=== PATIENT | female | born 1965 | race African-American/Black ===

== ENCOUNTER 2017-05-13 12:11 | Emergency (ER) | payer OTHER ==
--- NOTE | 2017-05-13 12:23 | ER Document Report ---
ED Medical Screen (RME) - General Chief Complaint: Swelling of Lower Extremity Stated Complaint: SWELLING, PAIN IN FEET Time Seen by Provider: 05/13/17 12:21 Mode of Arrival: Ambulatory Information source: Patient TRAVEL OUTSIDE OF THE [place] IN LAST 30 DAYS: No - HPI Patient complains to provider of: Lower extremity swelling and pain Onset: Other - 3 days Notes: 05/13/17 12:22 Patient is a 51-year-old female with a history of lupus, fibromyalgia and edema , who presents to the emergency room complaining of bilateral feet swelling this been going on and worsening over the past 3 days, reporting pain in the left foot and calf as well, she does report being on her feet an increased amount lately, but denies any chest pain or shortness of breath, no injury, no fever, she denies a history of DVT or PE in the past - Related Data Allergies/Adverse Reactions: amoxicillin [Amoxicillin] Allergy (Mild, Verified 05/13/17 12:17) Sulfa (Sulfonamide Antibiotics) Allergy (Mild, Verified 05/13/17 12:17) Past Medical History - Past Medical History Cardiac Medical History: Reports: Hx Hypertension Pulmonary Medical History: Reports: Hx Asthma Denies: Hx Tuberculosis Renal/ Medical History: Denies: Hx Peritoneal Dialysis GI Medical History: Reports: Hx Gastroesophageal Reflux Disease Musculoskeltal Medical History: Reports Hx Arthritis, Reports Hx Fibromyalgia Psychiatric Medical History: Reports: Hx Depression Past Surgical History: Reports: Hx Hysterectomy, Hx Tonsillectomy, Hx Vascular Surgery - for lymphedema. Denies: Hx Pacemaker - Immunizations Hx Diphtheria, Pertussis, Tetanus Vaccination: Yes Physical Exam - Vital signs Vitals: Temp Pulse Resp BP Pulse Ox 98.5 F 69 16 134/81 H 92 05/13/17 12:13 05/13/17 12:13 05/13/17 12:13 05/13/17 12:13 05/13/17 12:13 Course - Vital Signs Vital signs: Temp Pulse Resp BP Pulse Ox 98.5 F 69 16 134/81 H 92 05/13/17 12:13 05/13/17 12:13 05/13/17 12:13 05/13/17 12:13 05/13/17 12:13
[2017-05-13 12:46] LABS: ABSOLUTE BASOPHILS # (AUTO) 0.1 10^3/uL (0.0-0.2); ABSOLUTE EOSINOPHILS # (AUTO) 0.3 10^3/uL (0.0-0.6); ABSOLUTE MONOCYTES (AUTO) 0.9 10^3/uL (0.1-1.4); ABSOLUTE NEUT (AUTO) 5.4 10^3/uL (1.7-8.2); BASOPHILS % (AUTO) 1.1 % (0-2); EOSINOPHILS % (AUTO) 3.6 % (0-6); HEMATOCRIT 40.1 % (36.0-47.0); HEMOGLOBIN 12.9 g/dL (12.0-15.5); HGB HCT DIFFERENCE -1.4; LYMPHOCYTES % (AUTO) 30.7 % (13-45); MEAN CORPUSCULAR HEMOGLOBIN 27.2 pg (27.0-33.4); MEAN CORPUSCULAR HGB CONC 32.3 g/dL (32.0-36.0); MEAN CORPUSCULAR VOLUME 84 fl (80-97); RED BLOOD COUNT 4.76 10^6/uL (3.72-5.28); RED CELL DISTRIBUTION WIDTH 15.3 % (11.5-14.0); SEGMENTED NEUTROPHILS % (AUTO) 55.6 % (42-78); WHITE BLOOD COUNT 9.7 10^3/uL (4.0-10.5)
[2017-05-13 12:51] LABS: APPEARANCE,URINE CLEAR; BILIRUBIN,URINE NEGATIVE (NEGATIVE); GLUCOSE, URINE NEGATIVE (NEGATIVE); KETONES,URINE NEGATIVE (NEGATIVE); LEUKOCYTE ESTERASE,URINE NEGATIVE (NEGATIVE); NITRITE,URINE NEGATIVE (NEGATIVE); PROTEIN,URINE NEGATIVE (NEGATIVE); URINE SPECIFIC GRAVITY 1.015; UROBILINOGEN,URINE NEGATIVE mg/dL (<2.0)
[2017-05-13 12:57] LABS: PARTIAL THROMBOPLASTIN TIME 30.1 SEC (23.5-35.8); PROTHROMBIN TIME 12.5 SEC (11.4-15.4)
[2017-05-13 13:02] LABS: ALANINE AMINOTRANSFERASE 33 U/L (9-52); ALBUMIN 3.7 g/dL (3.5-5.0); ALKALINE PHOSPHATASE 139 U/L (38-126); ANION GAP 6 (5-19); ASPARTATE AMINO TRANSFERASE 24 U/L (14-36); BILIRUBIN,DIRECT 0.3 mg/dL (0.0-0.4); BILIRUBIN,TOTAL 0.5 mg/dL (0.2-1.3); BLOOD UREA NITROGEN 15 mg/dL (7-20); CARBON DIOXIDE 33 mmol/L (22-30); CHLORIDE 103 mmol/L (98-107); CREATININE RESULT 0.75 mg/dL (0.52-1.25); GLUCOSE 85 mg/dL (75-110); POTASSIUM 4.2 mmol/L (3.6-5.0); SODIUM 141.9 mmol/L (137-145); TOTAL PROTEIN 6.7 g/dL (6.3-8.2)
--- NOTE | 2017-05-13 13:05 | ER Document Report ---
ED General - General Chief Complaint: Swelling of Lower Extremity Stated Complaint: SWELLING, PAIN IN FEET Time Seen by Provider: 05/13/17 12:21 Mode of Arrival: Ambulatory Information source: Patient Notes: 51-year-old female history of swelling in bilateral lower extremities for the past few years presents with complaints of further swelling. Patient notes she is on 20 mg of furosemide daily notes over the past few days the left leg has become more swollen. Patient denies any DVT or PE risk factors Patient denies any shortness of breath chest pain TRAVEL OUTSIDE OF THE [place] IN LAST 30 DAYS: No - HPI Onset: Last week Onset/Duration: Persistent Quality of pain: Achy Severity: Mild Pain Level: 1 Associated symptoms: Leg swelling Exacerbated by: Standing Relieved by: Supine Similar symptoms previously: Yes Recently seen / treated by doctor: Yes - Related Data Allergies/Adverse Reactions: amoxicillin [Amoxicillin] Allergy (Mild, Verified 05/13/17 12:17) Sulfa (Sulfonamide Antibiotics) Allergy (Mild, Verified 05/13/17 12:17) Past Medical History - General Information source: Patient - Social History Smoking Status: Never Smoker Cigarette use (# per day): No Chew tobacco use (# tins/day): No Smoking Education Provided: No Frequency of alcohol use: None Drug Abuse: [place] Family History: Reviewed & Not Pertinent Patient has suicidal ideation: No Patient has homicidal ideation: No - Past Medical History Cardiac Medical History: Reports: Hx Hypertension Pulmonary Medical History: Reports: Hx Asthma Denies: Hx Tuberculosis Renal/ Medical History: Denies: Hx Peritoneal Dialysis GI Medical History: Reports: Hx Gastroesophageal Reflux Disease Musculoskeltal Medical History: Reports Hx Arthritis, Reports Hx Fibromyalgia Psychiatric Medical History: Reports: Hx Depression Past Surgical History: Reports: Hx Hysterectomy, Hx Tonsillectomy, Hx Vascular Surgery - for lymphedema. Denies: Hx Pacemaker - Immunizations Hx Diphtheria, Pertussis, Tetanus Vaccination: Yes Review of Systems - Review of Systems Notes: REVIEW OF SYSTEMS: CONSTITUTIONAL : Denies fever, chills, or sweats. Denies recent illness. EENT: Denies eye, ear, throat, or mouth pain or symptoms. Denies nasal or sinus congestion or discharge. Denies throat, tongue, or mouth swelling or difficulty swallowing. CARDIOVASCULAR: Denies chest pain. Denies palpitations or racing or irregular heart beat. Denies ankle edema. RESPIRATORY: Denies cough, cold, or chest congestion. Denies shortness of breath, difficulty breathing, or wheezing. GASTROINTESTINAL: Denies abdominal pain or distention. Denies nausea, vomiting , or diarrhea. Denies blood in vomitus, stools, or per rectum. Denies black, tarry stools. Denies constipation. GENITOURINARY: Denies difficulty urinating, painful urination, burning, frequency, blood in urine, or discharge. FEMALE GENITOURINARY: Denies vaginal bleeding, heavy or abnormal periods, irregular periods. Denies vaginal discharge or odor. MUSCULOSKELETAL: Admits to bilateral lower extremity edema left worse than right SKIN: Denies rash, lesions or sores. HEMATOLOGIC : Denies easy bruising or bleeding. LYMPHATIC: Denies swollen, enlarged glands. NEUROLOGICAL: Denies confusion or altered mental status. Denies passing out or loss of consciousness. Denies dizziness or lightheadedness. Denies headache. Denies weakness or paralysis or loss of use of either side. Denies problems with gait or speech. Denies sensory loss, numbness, or tingling. Denies seizures. PSYCHIATRIC: Denies anxiety or stress. Denies depression, suicidal ideation, or homicidal ideation. ALL OTHER SYSTEMS REVIEWED AND NEGATIVE. PHYSICAL EXAMINATION: GENERAL: Well-appearing, well-nourished and in no acute distress. HEAD: Atraumatic, normocephalic. EYES: Pupils equal round and reactive to light, extraocular movements intact, conjunctiva are normal. ENT: Nares patent, oropharynx clear without exudates. Moist mucous membranes. NECK: Normal range of motion, supple without lymphadenopathy LUNGS: Breath sounds clear to auscultation bilaterally and equal. No wheezes rales or rhonchi. HEART: Regular rate and rhythm without murmurs ABDOMEN: Soft, nontender, nondistended abdomen. No guarding, no rebound. No masses appreciated. Female : deferred Musculoskeletal: +1 nonpitting edema bilateral lower extremities NEUROLOGICAL: Cranial nerves grossly intact. Normal speech, normal gait. Normal sensory, motor exams PSYCH: Normal mood, normal affect. SKIN: Warm, Dry, normal turgor, no rashes or lesions noted. Dictation was performed using [employer] voice recognition software Physical Exam - Vital signs Vitals: Temp Pulse Resp BP Pulse Ox 98.5 F 69 16 134/81 H 92 05/13/17 12:13 05/13/17 12:13 05/13/17 12:13 05/13/17 12:13 05/13/17 12:13 Course - Re-evaluation Re-evalutation: 05/13/17 13:14 I believe the patient's symptoms are chronic and appropriate treatment will be the use of increased diuretic otherwise patient looks well. Lab work is pending to rule out any life-threatening issue 05/13/17 14:11 51-year-old female with lower extremity edema, patient's lab work imaging note no significant abnormality I believe she does have some venous stasis with mild fluid overload is not causing any respiratory concerns. BNP is not elevated Doppler was negative Patient has been instructed to increase frusemide from 20-40 daily for the next 3 days and given very strict return precautions After performing a Medical Screening Examination, I estimate there is LOW risk for RUPTURED ESOPHAGUS, PNEUMOTHORAX, PULMONARY EMBOLISM, ACUTE CORONARY SYNDROME, OR THORACIC AORTIC DISSECTION, thus I consider the discharge disposition reasonable. I have reevaluated this patient multiple times and no significant life threatening changes are noted. The patient and I have discussed the diagnosis and risks, and we agree with discharging home with close follow-up. We also discussed returning to the Emergency Department immediately if new or worsening symptoms occur. We have discussed the symptoms which are most concerning (e.g., bloody sputum, worsening pain or shortness of breath) that necessitate immediate return. - Vital Signs Vital signs: Temp Pulse Resp BP Pulse Ox 98.5 F 69 16 134/81 H 92 05/13/17 12:13 05/13/17 12:13 05/13/17 12:13 05/13/17 12:13 05/13/17 12:13 - Laboratory Result Diagrams: 05/13/17 12:25 05/13/17 12:25 Laboratory results interpreted by me: 05/13/17 05/13/17 12:25 12:25 RDW 15.3 H Carbon Dioxide 33 H Alkaline Phosphatase 139 H - Diagnostic Test Radiology reviewed: Image reviewed, Reports reviewed Discharge - Discharge Clinical Impression: Bilateral lower extremity edema Extremity pain Qualifiers: Extremity pain location: lower extremity Laterality: left Qualified Code(s): M79.605 - Pain in left leg Condition: Stable Disposition: HOME, SELF-CARE Instructions: Edema, Peripheral ([facility]) Referrals: JULIUS JOYCE MD [Primary Care Provider] - Follow up tomorrow
--- NOTE | 2017-05-13 13:33 | RADIOLOGY REPORT (SQ) ---
EXAM DESCRIPTION: CHEST PA/LAT COMPLETED DATE/TIME: 05/13/2017 1:25 pm REASON FOR STUDY: edema COMPARISON: 01/26/2016 EXAM PARAMETERS: NUMBER OF VIEWS: two views TECHNIQUE: Digital Frontal and Lateral radiographic views of the chest acquired. RADIATION DOSE: NA LIMITATIONS: none FINDINGS: LUNGS AND PLEURA: No opacities, masses or pneumothorax. No pleural effusion. MEDIASTINUM AND HILAR STRUCTURES: No masses or contour abnormalities. HEART AND VASCULAR STRUCTURES: Heart normal size. No evidence for failure. BONES: No acute findings. HARDWARE: None in the chest. OTHER: No other significant finding. IMPRESSION: NO SIGNIFICANT RADIOGRAPHIC FINDING IN THE CHEST. TECHNICAL DOCUMENTATION: JOB ID: [id number] [employer]- All Rights Reserved
--- NOTE | 2017-05-13 13:56 | XCELERA REPORT ---
[address] [address] Lower Extremity Venous Evaluation Name: JEANMARIE VARNER Age: 51 yrs Gender: Female : 1965 Patient Status: Emergency Patient Location: ER Study Date: 05/13/2017 01:01 PM Procedure: Color flow and duplex imaging of the veins of the left lower extremity as well as the right Common Femoral vein. Reason For Study: LLE pain Ordering Physician: ALIS IRAHETA Performed By: Lina Owen Right Sided Venous Evaluation The right common femoral vein is fully compressible. Spontaneous and phasic flow is present in the right common femoral vein. Left Sided Venous Evaluation Normal vessel filling wall to wall, compression and augmentation as well as Colour flow down to the infrageniculate veins. Critical Findings Called in to Dr Gerard at about 1400. Interpretation Summary No duplex evidence of DVT or obstruction in the left lower extremity nor in the right Common Femoral vein. : ALIS IRAHETA > Héctor Pineda
[2017-05-13 14:33] VITALS: BP 127/79
== END 2017-05-13 14:33 | disposition home or self-care (01) ==
LOC: ER 12:11
DX: I87.8 Other specified disorders of veins (principal); R60.0 Localized edema; M79.605 Pain in left leg; I10 Essential (primary) hypertension; J45.909 Unspecified asthma, uncomplicated; Z79.899 Other long term (current) drug therapy; Z88.0 Allergy status to penicillin; Z88.2 Allergy status to sulfonamides
CPT/HCPCS: 36415; 71020; 80053; 81001; 83880; 85025; 85610; 85730; 93971; 99284

== ENCOUNTER 2017-06-07 03:14 | Emergency (ER) | payer OTHER ==
[2017-06-07 03:26] VITALS: BP 133/83
--- NOTE | 2017-06-07 04:16 | ER Document Report ---
ED Extremity Problem, Lower - General Mode of Arrival: Ambulatory Information source: Patient TRAVEL OUTSIDE OF THE [place] IN LAST 30 DAYS: No - HPI Location: Knee - right Occurred: Just prior to arrival - General Chief Complaint: Knee Injury Stated Complaint: RIGHT KNEE PAIN CORKY INJURY Time Seen by Provider: 06/07/17 03:42 Notes: Patient is a 51 year old female who presents to the ED with complaints of right knee pain and swelling x 2 weeks. Patient states she has been having a work up done by her PCP, she had an x ray and DVT ultrasound done yesterday but has not been contacted with results. Patient denies any injury to the knee. Patient states today she was getting out of her car and heard a pop in her knee. Patient denies chest pain or sob. No other concerns or complaints at this time. (STEVENSON GAONA) - Related Data Allergies/Adverse Reactions: amoxicillin [Amoxicillin] Allergy (Mild, Verified 06/07/17 04:03) Sulfa (Sulfonamide Antibiotics) Allergy (Mild, Verified 06/07/17 04:03) Past Medical History - General Information source: Patient - Social History Smoking Status: Never Smoker Chew tobacco use (# tins/day): No Frequency of alcohol use: None Drug Abuse: None Family History: Reviewed & Not Pertinent Patient has suicidal ideation: No Patient has homicidal ideation: No - Past Medical History Cardiac Medical History: Reports: Hx Hypertension Pulmonary Medical History: Reports: Hx Asthma Denies: Hx Tuberculosis Renal/ Medical History: Denies: Hx Peritoneal Dialysis GI Medical History: Reports: Hx Gastroesophageal Reflux Disease Musculoskeltal Medical History: Reports Hx Arthritis, Reports Hx Fibromyalgia Psychiatric Medical History: Reports: Hx Depression Past Surgical History: Reports: Hx Hysterectomy, Hx Tonsillectomy, Hx Vascular Surgery - for lymphedema. Denies: Hx Pacemaker - Immunizations Hx Diphtheria, Pertussis, Tetanus Vaccination: Yes Review of Systems - Review of Systems Constitutional: No symptoms reported EENT: No symptoms reported Cardiovascular: See HPI. denies: Chest pain Respiratory: See HPI. denies: Short of breath Gastrointestinal: No symptoms reported Genitourinary: No symptoms reported Female Genitourinary: No symptoms reported Musculoskeletal: See HPI, Joint pain - right knee, Joint swelling - right knee Skin: No symptoms reported Hematologic/Lymphatic: No symptoms reported Neurological/Psychological: No symptoms reported Physical Exam - General General appearance: Appears well, Alert In distress: None - HEENT Head: Normocephalic, Atraumatic Eyes: Normal Extraocular movements intact: Yes Pupils: PERRL - Respiratory Respiratory status: No respiratory distress Breath sounds: Normal - Cardiovascular Rhythm: Regular Heart sounds: Normal auscultation Murmur: No - Abdominal Inspection: Normal Distension: No distension Tenderness: Nontender - Back Back: Normal, Nontender - Extremities General upper extremity: Normal inspection, Normal ROM General lower extremity: Normal inspection, Normal ROM - Neurological Neuro grossly intact: Yes Cognition: Normal Orientation: AAOx4 [place] Coma Scale Eye Opening: Spontaneous [place] Coma Scale Verbal: Oriented [place] Coma Scale Motor: Obeys Commands [place] Coma Scale Total: 15 Speech: Normal Sensory: Normal - Psychological Associated symptoms: Normal affect, Normal mood - Skin Skin Temperature: Warm Skin Moisture: Dry Skin Color: Normal Course - Re-evaluation Re-evalutation: 06/07/17 04:37 Patient presents emergency room chiefly right knee pain and swelling. Patient states that the past 3 or 4 weeks she has had right leg pain. Patient with a car today twisted and felt a pop in her knee. She is complaining of pain only in her right knee today denies any previous injury to the area no history of recent travel surgery immobilization DVT or pulmonary emboli no chest pain or shortness of breath numbness tingling weakness on examination the knee is not red hot or swollen there is no ligamentous instability no Tenderness swelling good pulses and perfusion. Says she saw her primary care physician yesterday who did an x-ray she can get the results of it and did an ultrasound she also been get the results of it. On my examination x-ray is negative no intra- articular swelling. No clinical concerns for recurrent DVT cellulitis. Go ahead and give her an Keron wrap crutches to go pack primary care physician in 2- 3 days and discussed reasons for ED return to ([facility]) - Vital Signs Vital signs: Temp Pulse Resp BP Pulse Ox 98.1 F 83 16 133/83 H 98 06/07/17 03:24 06/07/17 03:24 06/07/17 03:24 06/07/17 03:24 06/07/17 03:24 Discharge - Discharge Clinical Impression: right knee pain Condition: Stable Disposition: HOME, SELF-CARE Instructions: Use of Crutches ([facility]) Additional Instructions: Leg Pain, Nonspecific We did not find an obvious cause for your leg pain. There's no sign of blood clot, infection, or other serious disease. Possible causes of vague leg pain include muscle or joint inflammation, disc disease in the lower back, pressure on the nerves in the back, or reduced blood flow through the arteries of the leg. Rest the leg. Pain can be eased with an antiinflammatory pain medicine such as ibuprofen. If the pain involves a small area, a heating pad might help. Call the doctor or return if the leg becomes swollen, weak, discolored, or increasingly painful, or if you develop any other significant change in your health. follow up with your primary care physician in 2-3 days return for increasing worsening or new symptoms Scribe Attestation: 06/07/17 04:37 I personally performed the services described in the documentation reviewed the documentation recorded by my scribe in my presence and it accurately and completely records my words and actions (HARRY PARKINSON) Scribe Documentation - Scribe Written by Evelin:: evelin Cabral, 06/07/2017, [id number] acting as scribe for :: [place]
--- NOTE | 2017-06-07 04:17 | RADIOLOGY REPORT (SQ) ---
EXAM DESCRIPTION: KNEE RIGHT 4 VIEWS COMPLETED DATE/TIME: 06/07/2017 4:04 am REASON FOR STUDY: swelling . Pain on the lateral aspect adjacent to the patella. Binger a pop when g etting into the car. COMPARISON: Right tibia/ fibula x-ray 10/07/2015, 08/08/2007. NUMBER OF VIEWS: Four views. TECHNIQUE: AP, lateral, and both oblique radiographic images acquired of the right knee. LIMITATIONS: None. FINDINGS: MINERALIZATION: Normal. BONES: No acute fracture or dislocation. JOINT: No effusion. SOFT TISSUES: No soft tissue swelling. No radio-opaque foreign body. IMPRESSION: No radiographic evidence of acute fracture. TECHNICAL DOCUMENTATION: JOB ID: [id number] [employer]- All Rights Reserved
[2017-06-07] MEDS ORDERED: HYDROCODONE/ACETAMINOPHEN 5-325 MG 6 TAB/DSPK PO PRN (04:35)
== END 2017-06-07 04:50 | disposition home or self-care (01) ==
LOC: ER 03:14
DX: M25.561 Pain in right knee (principal); M79.89 Other specified soft tissue disorders
CPT/HCPCS: 99283

== ENCOUNTER → 2018-01-21 | Outpatient (CLI) | payer OTHER ==
--- NOTE | 2018-01-21 08:25 | RADIOLOGY REPORT (SQ) ---
EXAM DESCRIPTION: KUB COMPLETED DATE/TIME: 01/21/2018 7:53 am REASON FOR STUDY: CALCULUS OF KIDNEY N20.0 CALCULUS OF KIDNEY COMPARISON: 10/16/2016, 05/19/2014 NUMBER OF VIEWS: One view. TECHNIQUE: Supine radiographic image of the abdomen acquired. LIMITATIONS: None. FINDINGS: BOWEL GAS PATTERN: Normal bowel gas pattern. No dilated loops. CALCIFICATIONS: 5 mm calcific density projected over the right sacrum unchanged in position since however was not on the previous KUB of 05/19/2014. Ureteral calculus is a consideration. No renal calculi however calcific densities right kidney could be obscured by large quantity fecal mater ial. SOFT TISSUES: No gross mass or suggestion of organomegaly. HARDWARE: None in the abdomen. BONES: Degenerative changes lower lumbar spine. Right sacroiliitis. OTHER: No other significant finding. IMPRESSION: Persistent 5 mm calcific density projected over the right sacrum. See above discussion. TECHNICAL DOCUMENTATION: JOB ID: [id number] [employer]- All Rights Reserved Reading location - IP/workstation name: [email or web address]
== END ==
LOC: OD 07:42
PROVIDERS: ATTEND Urology
DX: N20.0 Calculus of kidney (principal)
CPT/HCPCS: 74018

== ENCOUNTER 2018-12-30 12:10 | Emergency (ER) | payer OTHER ==
--- NOTE | 2018-12-30 13:17 | ER Document Report ---
ED Medical Screen (RME) - General Chief Complaint: Breathing Difficulty Stated Complaint: SHORT OF BREATH, BACK PAIN Time Seen by Provider: 12/30/18 13:15 Mode of Arrival: Ambulatory Notes: Patient presents complaining of upper back pain with shortness of breath for the past 2-3 days. Patient denies any chest pain. Patient also reports that a door hit her in the anterior aspect of bilateral lower extremities and she has bruising and swelling to this area. History Lupus, fibromyalgia, hypertension, diabetes I have greeted and performed a rapid initial assessment of this patient. A comprehensive ED assessment and evaluation of the patient, analysis of test results and completion of the medical decision making process will be conducted by additional ED providers. TRAVEL OUTSIDE OF THE [place] IN LAST 30 DAYS: No - Related Data Allergies/Adverse Reactions: amoxicillin [Amoxicillin] Allergy (Mild, Verified 12/30/18 12:11) Sulfa (Sulfonamide Antibiotics) Allergy (Mild, Verified 12/30/18 12:11) Past Medical History - Past Medical History Cardiac Medical History: Reports: Hx Hypertension Pulmonary Medical History: Reports: Hx Asthma Denies: Hx Tuberculosis Renal/ Medical History: Denies: Hx Peritoneal Dialysis GI Medical History: Reports: Hx Gastroesophageal Reflux Disease Musculoskeltal Medical History: Reports Hx Arthritis, Reports Hx Fibromyalgia Psychiatric Medical History: Reports: Hx Depression Past Surgical History: Reports: Hx Hysterectomy, Hx Tonsillectomy, Hx Vascular Surgery - for lymphedema. Denies: Hx Pacemaker - Immunizations Hx Diphtheria, Pertussis, Tetanus Vaccination: Yes Physical Exam - Vital signs Vitals: Temp Pulse Resp BP Pulse Ox 98.8 F 58 L 20 129/79 H 99 12/30/18 12:36 12/30/18 12:36 12/30/18 12:36 12/30/18 12:36 12/30/18 12:36 - Respiratory Respiratory status: No respiratory distress Chest status: Nontender Breath sounds: Normal. No: Nonproductive cough Course - Vital Signs Vital signs: Temp Pulse Resp BP Pulse Ox 98.8 F 58 L 20 129/79 H 99 12/30/18 12:36 12/30/18 12:36 12/30/18 12:36 12/30/18 12:36 12/30/18 12:36
--- NOTE | 2018-12-30 14:22 | RADIOLOGY REPORT (SQ) ---
EXAM DESCRIPTION: TIB FIB BILAT 2 VIEWS COMPLETED DATE/TIME: 12/30/2018 2:09 pm REASON FOR STUDY: door struck legs COMPARISON: None. NUMBER OF VIEWS: Two views. TECHNIQUE: Two radiographic images acquired of the right and left tibia and fibula to include the kn ee and ankle in at least one projection. LIMITATIONS: None. FINDINGS: MINERALIZATION: Normal. BONES: No acute fracture or dislocation. No worrisome bone lesions. SOFT TISSUES: Mild bilateral pretibial soft tissue swelling. No underlying fracture. No retained ra diopaque foreign body or soft tissue gas. OTHER: Mild bilateral medial compartment knee joint space narrowing IMPRESSION: No acute fracture TECHNICAL DOCUMENTATION: JOB ID: [id number] [employer]- All Rights Reserved Reading location - IP/workstation name: [email or web address]
--- NOTE | 2018-12-30 14:23 | RADIOLOGY REPORT (SQ) ---
EXAM DESCRIPTION: CHEST 2 VIEWS COMPLETED DATE/TIME: 12/30/2018 2:09 pm REASON FOR STUDY: sob COMPARISON: Two-view chest 05/13/2017 EXAM PARAMETERS: NUMBER OF VIEWS: two views TECHNIQUE: Digital Frontal and Lateral radiographic views of the chest acquired. RADIATION DOSE: NA LIMITATIONS: none FINDINGS: LUNGS AND PLEURA: No opacities, masses or pneumothorax. No pleural effusion. MEDIASTINUM AND HILAR STRUCTURES: No masses or contour abnormalities. HEART AND VASCULAR STRUCTURES: Stable borderline cardiomegaly BONES: No acute findings. HARDWARE: None in the chest. OTHER: No other significant finding. IMPRESSION: NO ACUTE RADIOGRAPHIC FINDING IN THE CHEST. TECHNICAL DOCUMENTATION: JOB ID: [id number] [employer]- All Rights Reserved Reading location - IP/workstation name: [email or web address]
[2018-12-30 14:49] LABS: ABSOLUTE BASOPHILS # (AUTO) 0.1 10^3/uL (0.0-0.2); ABSOLUTE EOSINOPHILS # (AUTO) 0.1 10^3/uL (0.0-0.6); ABSOLUTE LYMPHOCYTES (AUTO) 2.7 10^3/uL (0.5-4.7); ABSOLUTE MONOCYTES (AUTO) 0.5 10^3/uL (0.1-1.4); ABSOLUTE NEUT (AUTO) 2.4 10^3/uL (1.7-8.2); BASOPHILS % (AUTO) 1.1 % (0-2); EOSINOPHILS % (AUTO) 2.5 % (0-6); HEMATOCRIT 40.1 % (36.0-47.0); HEMOGLOBIN 13.4 g/dL (12.0-15.5); LYMPHOCYTES % (AUTO) 46.1 % (13-45); MEAN CORPUSCULAR HEMOGLOBIN 28.9 pg (27.0-33.4); MEAN CORPUSCULAR HGB CONC 33.3 g/dL (32.0-36.0); MEAN CORPUSCULAR VOLUME 87 fl (80-97); MONOCYTES % (AUTO) 8.4 % (3-13); PLATELET COUNT 227 10^3/uL (150-450); RED BLOOD COUNT 4.63 10^6/uL (3.72-5.28); RED CELL DISTRIBUTION WIDTH 14.5 % (11.5-14.0); SEGMENTED NEUTROPHILS % (AUTO) 41.9 % (42-78); TOTAL CELLS COUNTED % (AUTO) 100 %; WHITE BLOOD COUNT 5.8 10^3/uL (4.0-10.5)
[2018-12-30 15:04] LABS: ALANINE AMINOTRANSFERASE 24 U/L (9-52); ALBUMIN 4.2 g/dL (3.5-5.0); ALKALINE PHOSPHATASE 86 U/L (38-126); ANION GAP 7 (5-19); ASPARTATE AMINO TRANSFERASE 28 U/L (14-36); BILIRUBIN,DIRECT 0.2 mg/dL (0.0-0.4); BILIRUBIN,TOTAL 0.4 mg/dL (0.2-1.3); BLOOD UREA NITROGEN 11 mg/dL (7-20); CALCIUM 9.1 mg/dL (8.4-10.2); CARBON DIOXIDE 25 mmol/L (22-30); CHLORIDE 109 mmol/L (98-107); CREATINE KINASE 175 U/L (30-135); GLUCOSE 81 mg/dL (75-110); POTASSIUM 4.5 mmol/L (3.6-5.0); SODIUM 140.9 mmol/L (137-145); TOTAL PROTEIN 6.9 g/dL (6.3-8.2)
[2018-12-30 15:17] LABS: CREATINE KINASE MB 0.82 ng/mL (<4.55); NT PRO BNP 149 pg/mL (5-900); TROPONIN I < 0.012 ng/mL
--- NOTE | 2018-12-30 17:44 | ER Document Report ---
ED General - General Chief Complaint: Breathing Difficulty Stated Complaint: SHORT OF BREATH, BACK PAIN Time Seen by Provider: 12/30/18 13:15 Primary Care Provider: ERMA TORRES MD [Primary Care Provider] - Follow up as needed Mode of Arrival: Ambulatory TRAVEL OUTSIDE OF THE [place] IN LAST 30 DAYS: No - HPI Patient complains to provider of: Shortness of breath contusions to the legs Notes: Patient coming in for evaluation for contusion to the legs difficulty breathing. Patient was seen by triage provider's notes provided below Patient presents complaining of upper back pain with shortness of breath for the past 2-3 days. Patient denies any chest pain. Patient also reports that a door hit her in the anterior aspect of bilateral lower extremities and she has bruising and swelling to this area. History Lupus, fibromyalgia, hypertension, diabetes Patient upon my evaluation stating no further shortness of breath no chest pain. Patient resting comfortably. Patient does have some swelling to the anterior right gross. Patient states that this is painful. Patient denies any increased swelling to her legs denies any fevers chills nausea vomiting diarrhea - Related Data Allergies/Adverse Reactions: amoxicillin [Amoxicillin] Allergy (Mild, Verified 12/30/18 12:11) Sulfa (Sulfonamide Antibiotics) Allergy (Mild, Verified 12/30/18 12:11) Past Medical History - Social History Smoking Status: Never Smoker Chew tobacco use (# tins/day): No Frequency of alcohol use: None Drug Abuse: None Family History: Reviewed & Not Pertinent Patient has suicidal ideation: No Patient has homicidal ideation: No - Past Medical History Cardiac Medical History: Reports: Hx Hypertension Pulmonary Medical History: Reports: Hx Asthma Denies: Hx Tuberculosis Renal/ Medical History: Denies: Hx Peritoneal Dialysis GI Medical History: Reports: Hx Gastroesophageal Reflux Disease Musculoskeletal Medical History: Reports Hx Arthritis, Reports Hx Fibromyalgia Psychiatric Medical History: Reports: Hx Depression Past Surgical History: Reports: Hx Hysterectomy, Hx Tonsillectomy, Hx Vascular Surgery - for lymphedema. Denies: Hx Pacemaker - Immunizations Hx Diphtheria, Pertussis, Tetanus Vaccination: Yes Review of Systems - Review of Systems Constitutional: No symptoms reported EENT: No symptoms reported Cardiovascular: No symptoms reported Respiratory: Short of breath Gastrointestinal: No symptoms reported Genitourinary: No symptoms reported Female Genitourinary: No symptoms reported Musculoskeletal: Other - Contusions to the leg Skin: No symptoms reported Hematologic/Lymphatic: No symptoms reported Neurological/Psychological: No symptoms reported -: Yes All other systems reviewed and negative Physical Exam - Vital signs Vitals: Temp Pulse Resp BP Pulse Ox 98.8 F 58 L 20 129/79 H 99 12/30/18 12:36 12/30/18 12:36 12/30/18 12:36 12/30/18 12:36 12/30/18 12:36 Interpretation: Normal - General General appearance: Appears well, Alert - HEENT Head: Normocephalic, Atraumatic Eyes: Normal Pupils: PERRL - Respiratory Respiratory status: No respiratory distress Chest status: Nontender Breath sounds: Normal Chest palpation: Normal - Cardiovascular Rhythm: Regular Heart sounds: Normal auscultation Murmur: No - Abdominal Inspection: Normal Distension: No distension Bowel sounds: Normal Tenderness: Nontender Organomegaly: No organomegaly - Back Back: Normal, Nontender - Extremities General upper extremity: Normal inspection, Nontender, Normal color, Normal ROM, Normal temperature General lower extremity: Nontender, Normal color, Normal ROM, Normal temperature, Normal weight bearing. No: Normal inspection - Patient with a contusion to the gross right lower extremity on the medial and lateral aspect proximal. There are no signs of any posterior calf tenderness no cords no palpable nodules no signs of asymmetry between the right and left calf or leg, Meghan's sign - Neurological Neuro grossly intact: Yes Cognition: Normal Orientation: AAOx4 [place] Coma Scale Eye Opening: Spontaneous [place] Coma Scale Verbal: Oriented [place] Coma Scale Motor: Obeys Commands [place] Coma Scale Total: 15 Speech: Normal Motor strength normal: LUE, RUE, LLE, RLE Sensory: Normal - Psychological Associated symptoms: Normal affect, Normal mood - Skin Skin Temperature: Warm Skin Moisture: Dry Skin Color: Normal Course - Re-evaluation Re-evalutation: 12/30/18 18:43 Workup is negative for any critical pathology. Patient recommended ice and elevation of her contusion. Patient will be discharged home - Vital Signs Vital signs: Temp Pulse Resp BP Pulse Ox 98.6 F 58 L 14 124/89 H 100 12/30/18 17:55 12/30/18 12:36 12/30/18 17:55 12/30/18 17:55 12/30/18 17:55 - Laboratory Result Diagrams: 12/30/18 14:16 12/30/18 14:16 Laboratory results interpreted by me: 12/30/18 12/30/18 14:16 14:16 RDW 14.5 H Seg Neutrophils % 41.9 L Lymphocytes % 46.1 H Chloride 109 H Creatine Kinase 175 H Discharge - Discharge Clinical Impression: Dyspnea Contusion of lower leg Qualifiers: Encounter type: initial encounter Disposition: HOME, SELF-CARE Instructions: Contusion ([facility]), Dyspnea, Nonspecific ([facility]) Additional Instructions: Laboratory studies not show any critical pathology x-rays not show any fracture chest x-rays not showing signs of pneumonia. Examination of the leg does not reveal any signs of a deep vein thrombosis only a contusion to the anterior side we recommend ice and elevation please follow-up with your primary care physician return to ER symptoms worsen. Referrals: ERMA TORRES MD [Primary Care Provider] - Follow up as needed
[2018-12-30 17:58] VITALS: BP 124/89
--- NOTE | 2018-12-30 18:23 | EKG REPORT ---
SEVERITY:- OTHERWISE NORMAL ECG - SINUS BRADYCARDIA : Confirmed by: Carmela Garcia 30-Dec-2018 18:22:57
== END 2018-12-30 17:58 | disposition home or self-care (01) ==
LOC: ER 12:10
DX: S80.10XA Contusion of unspecified lower leg, initial encounter (principal); R06.02 Shortness of breath; R06.00 Dyspnea, unspecified; M54.9 Dorsalgia, unspecified; W22.8XXA Striking against or struck by other objects, initial encounter; I10 Essential (primary) hypertension; E11.9 Type 2 diabetes mellitus without complications; Z88.0 Allergy status to penicillin; Z88.2 Allergy status to sulfonamides; Z90.710 Acquired absence of both cervix and uterus
CPT/HCPCS: 36415; 71046; 80053; 82550; 82553; 83880; 84484; 85025; 93005; 93010; 99285

== ENCOUNTER → 2019-10-14 | Outpatient (CLI) | payer MEDICARE, OTHER ==
--- NOTE | 2019-10-14 16:46 | XCELERA REPORT ---
[address] [address] Lower Extremity Arterial Evaluation Name: JEANMARIE VARNER Age: 53 yrs Gender: Female : 1965 Patient Status: Preadmit Patient Location: [facility] Study Date: 10/14/2019 10:26 AM Procedure: A color flow and duplex scan of the lower extremity arteries was performed bilaterally with velocity and waveform anaylsis. Reason For Study: LLE PAIN Ordering Physician: GLENN ASPP Performed By: Roscoe Wilcox Measurements and Calculations Right Left PHARMACY COORDINATOR PSV 181.7 142.5 cm/sec Prox PFA PSV -108.1 -86.9 cm/sec Prox SFA PSV 113.8 110.3 cm/sec Mid SFA PSV -95.3 -89.9 cm/sec Dist SFA PSV -88.9 -86.0 cm/sec Prox Pop A PSV 82.0 83.0 cm/sec Dist KOBE PSV 60.5 59.0 cm/sec Dist LAYER OFF PSV 65.2 55.5 cm/sec Duncan Pedis PSV 58.0 56.6 cm/sec Right Side Arterial Evaluation Normal velocity and triphasic waveforms noted from the Common Femoral artery to the infrageniculate vessels . Ankle Brachial index not ordered. Left Side Arterial Evaluation Normal velocity and triphasic waveforms noted from the Common Femoral artery to the infrageniculate vessels . Ankle Brachial index not ordered. Interpretation Summary No hemodynamically significant lesions in the bilateral lower extremities, on duplex imaging, at rest. : GLENN SAPP > Héctor Pineda
== END ==
LOC: SP 10:02
PROVIDERS: ATTEND Pain Medicine Interventional Pain Medicine
DX: M79.662 Pain in left lower leg (principal)
CPT/HCPCS: 93925

== ENCOUNTER 2020-10-01 10:43 | Emergency (ER) | payer MEDICARE, OTHER ==
[2020-10-01] MEDS ORDERED: DEXAMETHASONE SOD PHOS INJ 10 MG/1 ML VIAL IV ONE (11:13)
[2020-10-01] MEDS ORDERED: NORMAL SALINE 1000 ML 1,000 ML IV ONE (11:14)
--- NOTE | 2020-10-01 11:16 | ER Document Report ---
ED Medical Screen (RME) - General Chief Complaint: Shortness Of Breath Stated Complaint: SHORT OF BREATH,CONGESTION Time Seen by Provider: 10/01/20 11:07 Primary Care Provider: GLENN SAPP MD [Primary Care Provider] - Follow up as needed Mode of Arrival: Ambulatory Information source: Patient Notes: 54-year-old female presented to ED for complaint of cough short of breath chest discomfort from the cough since the 15 September she states she did get a virtual visit with her primary care doctor and they write a prescription for some cough medicine. She did have a Covid test on the which was negative but her symptoms continued to get worse. Will order repeat Covid, influenza, chest, lab work, and 10 mg of Decadron IV for her symptoms. She does have a history of lupus. Her lungs are congested and mildly diminished. I have greeted and performed a rapid initial assessment of this patient. A comprehensive ED assessment and evaluation of the patient, analysis of test results and completion of medical decision making process will be conducted by an additional ED providers. TRAVEL OUTSIDE OF THE [place] IN LAST 30 DAYS: No - Related Data Allergies/Adverse Reactions: amoxicillin [Amoxicillin] Allergy (Mild, Verified 12/30/18 12:11) Sulfa (Sulfonamide Antibiotics) Allergy (Mild, Verified 12/30/18 12:11) Past Medical History - Past Medical History Cardiac Medical History: Reports: Hx Hypertension Pulmonary Medical History: Reports: Hx Asthma Denies: Hx Tuberculosis Renal/ Medical History: Denies: Hx Peritoneal Dialysis GI Medical History: Reports: Hx Gastroesophageal Reflux Disease Musculoskeltal Medical History: Reports Hx Arthritis, Reports Hx Fibromyalgia Psychiatric Medical History: Reports: Hx Depression Past Surgical History: Reports: Hx Hysterectomy, Hx Tonsillectomy, Hx Vascular Surgery - for lymphedema. Denies: Hx Pacemaker - Immunizations Hx Diphtheria, Pertussis, Tetanus Vaccination: Yes Physical Exam - Vital signs Vitals: Temp Pulse Resp BP Pulse Ox 99.2 F 86 16 142/60 H 97 10/01/20 10:48 10/01/20 10:48 10/01/20 10:48 10/01/20 10:48 10/01/20 10:48 Course - Vital Signs Vital signs: Temp Pulse Resp BP Pulse Ox 99.2 F 86 16 142/60 H 97 10/01/20 10:48 10/01/20 10:48 10/01/20 10:48 10/01/20 10:48 10/01/20 10:48 Doctor's Discharge - Discharge Referrals: GLENN SAPP MD [Primary Care Provider] - Follow up as needed
--- NOTE | 2020-10-01 13:01 | RADIOLOGY REPORT (SQ) ---
EXAM DESCRIPTION: CHEST SINGLE VIEW IMAGES COMPLETED DATE/TIME: 10/01/2020 12:53 pm REASON FOR STUDY: Cough short of breath congestion since 15 September COMPARISON: 12/30/2018 EXAM PARAMETERS: NUMBER OF VIEWS: One view. TECHNIQUE: Single frontal radiographic view of the chest acquired. RADIATION DOSE: NA LIMITATIONS: None. FINDINGS: LUNGS AND PLEURA: No opacities, masses or pneumothorax. No pleural effusion. MEDIASTINUM AND HILAR STRUCTURES: No masses. Contour normal. HEART AND VASCULAR STRUCTURES: Heart normal in size. Normal vasculature. BONES: No acute findings. HARDWARE: None in the chest. OTHER: No other significant finding. IMPRESSION: NO ACUTE RADIOGRAPHIC FINDING IN THE CHEST. TECHNICAL DOCUMENTATION: JOB ID: [id number] 2010 [employer]- All Rights Reserved Reading location - IP/workstation name: [email or web address]
[2020-10-01] MEDS ORDERED: DEXAMETHASONE SOD PHOSPHATE INJ 4 MG/1 ML VIAL IV ONE (14:00)
[2020-10-01] MEDS ORDERED: PREDNISONE 20 MG TABLET PO ONE (14:10)
--- NOTE | 2020-10-01 14:39 | ER Document Report ---
Entered by BORIS REDDING SCRIBE 10/01/20 1407 Acting as scribe for:KEKE KWON MD ED Respiratory Problem - General Chief Complaint: Shortness Of Breath Stated Complaint: SHORT OF BREATH,CONGESTION Time Seen by Provider: 10/01/20 11:07 Primary Care Provider: JULIUS JOYCE MD [COMMUNITY BASED STAFF] - Follow up as needed Mode of Arrival: Ambulatory Information source: Patient Notes: This 54-year-old female patient presents to the emergency department today with concerns of a dry nonproductive cough with an associated hoarse voice. Patient was seen using a virtual visit by her PCP on 09/15 for similar symptoms, she was tested for COVID-19 at that time and it was negative. Patient was started on Promethazine DM for this same cough with no real change. Patient states when she lies down at night she feels like she is choking, she has been sleeping with her head propped up. She describes what sounds like mucus in the back of her throat. She denies any fevers or other. TRAVEL OUTSIDE OF THE [place] IN LAST 30 DAYS: No - Related Data Allergies/Adverse Reactions: amoxicillin [Amoxicillin] Allergy (Mild, Verified 12/30/18 12:11) Sulfa (Sulfonamide Antibiotics) Allergy (Mild, Verified 12/30/18 12:11) Home Medications: Telmisartan. HCTZ. TOpamax. lasix Past Medical History - General Information source: Patient - Social History Smoking Status: Never Smoker Cigarette use (# per day): No Chew tobacco use (# tins/day): No Frequency of alcohol use: None Drug Abuse: None Lives with: Family Family History: Reviewed & Not Pertinent - Past Medical History Cardiac Medical History: Reports: Hx Hypertension Pulmonary Medical History: Reports: Hx Asthma GI Medical History: Reports: Hx Gastroesophageal Reflux Disease Musculoskeletal Medical History: Reports Hx Arthritis, Reports Hx Fibromyalgia Psychiatric Medical History: Reports: Hx Depression Past Surgical History: Reports: Hx Hysterectomy, Hx Tonsillectomy, Hx Vascular Surgery - for lymphedema - Immunizations Hx Diphtheria, Pertussis, Tetanus Vaccination: Yes Review of Systems - Review of Systems Constitutional: denies: Fever EENT: See HPI, Nose congestion. denies: Throat pain Cardiovascular: No symptoms reported Respiratory: See HPI, Cough Gastrointestinal: No symptoms reported Genitourinary: No symptoms reported Female Genitourinary: No symptoms reported Musculoskeletal: No symptoms reported Skin: No symptoms reported Hematologic/Lymphatic: No symptoms reported Neurological/Psychological: No symptoms reported -: Yes All other systems reviewed and negative Physical Exam - Vital signs Vitals: Temp Pulse Resp BP Pulse Ox 99.2 F 86 16 142/60 H 97 10/01/20 10:48 10/01/20 10:48 10/01/20 10:48 10/01/20 10:48 10/01/20 10:48 - Notes Notes: Physical Exam: General: Alert, appears well. Hoarse, intermittently squeaky sounding voice. HEENT: Normocephalic. Atraumatic. PERRL. Extraocular movements intact. No posterior oropharynx erythema or exudate, tonsils are surgically absent, airway is patent. There is cobblestoning of the posterior oropharynx. No anterior or posterior cervical lymphadenopathy. Neck: Supple. Non-tender. Respiratory: No respiratory distress. Clear and equal breath sounds bilaterally. Cardiovascular: Regular rate and rhythm. Abdominal: Morbidly obese. Non-tender. No distension. Normal Bowel Sounds. Back: No gross abnormalities. Extremities: Moves all four extremities. Upper extremities: Normal inspection. Normal ROM. Lower extremities: Normal inspection. No edema. Normal ROM. Neurological: Normal cognition. AAOx4. Normal speech. Psychological: Normal affect. Normal Mood. Skin: Warm. Dry. Normal color. Course - Re-evaluation Re-evalutation: 10/01/20 15:45 The patient was evaluated during the global COVID-19 pandemic and that diagnosis was suspected/considered upon their initial presentation. Their evaluation, treatment and testing was consistent with current guidelines for patients who present with complaints or symptoms that may be related to COVID-19. - Vital Signs Vital signs: Temp Pulse Resp BP Pulse Ox 99.2 F 86 16 142/60 H 97 10/01/20 10:48 10/01/20 10:48 10/01/20 10:48 10/01/20 10:48 10/01/20 10:48 - Laboratory Result Diagrams: 10/01/20 14:15 10/01/20 14:15 Laboratory results interpreted by me: 10/01/20 14:15 RDW 15.3 H - Diagnostic Test Radiology reviewed: Image reviewed, Reports reviewed Discharge - Discharge Clinical Impression: Viral upper respiratory tract infection with cough, Laryngitis Condition: Stable Disposition: HOME, SELF-CARE Instructions: COVID-19 Guidance for Persons Under Investigation Additional Instructions: Upper Respiratory Illness: You have a viral infection of the respiratory passages -- a "cold." This common infection causes nasal congestion, drainage, and often sore throat and cough. It is caused by a virus and is highly contagious. The disease usually lasts a week or more, though the worst symptoms are usually over in 3 or 4 days. There is no "cure" for the viral infection -- it must run its course. If there is a complication, such as bacterial infection in the nose, sinuses, middle ear, or bronchial tubes, antibiotics may be required, but antibiotics wo n't affect the virus. If you smoke, you should STOP!! Drink plenty of fluids. A humidifier may help. An expectorant medication or decongestant may make you more comfortable. Use acetaminophen or ibuprofen for fever or aches. See the doctor if fever persists over two or three days, if there is any significant worsening of your symptoms, or if you simply fail to improve as expected. Laryngitis: You have laryngitis. This is an inflammation of the vocal cords which leads to inability to speak normally. Any irritation to the airway can cause laryngitis. Causes include virus infection, smoke inhalation, allergy, or even trauma due to excessive talking or shouting. Rest your voice. Any vibration of the vocal cords increases and prolongs the swelling. Humidity is helpful, especially cool mist. Avoid dust, chemical fumes, and smoke. Avoid decongestants and antihistamines -- these will make you worse. You can expect to recover completely in a few days. See the physician if new symptoms develop, such as high fever, productive cough, shortness of breath, or if you do not improve within a few days. Take the Tessalon Perles as prescribed to help suppress your cough. Start the prednisone tomorrow, you have had today's dose here in the emergency room. Try taking Robitussin-DM for additional cough control. Drink plenty of fluids throughout the day in the evening. Rest your voice is much as possible. Follow-up with your primary care provider if not improving over the next several days. RETURN TO THE EMERGENCY ROOM IF ANY NEW OR WORSENING SYMPTOMS. Prescriptions: Prednisone [Deltasone 10 mg Tablet] 10 mg PO ASDIR PRN #21 tablet PRN Reason: Benzonatate [Tessalon Perles 100 mg Capsule] 100 mg PO ASDIR PRN #30 capsule PRN Reason: Referrals: JULIUS JOYCE MD [COMMUNITY BASED STAFF] - Follow up as needed I personally performed the services described in the documentation, reviewed and edited the documentation which was dictated to the scribe in my presence, and it accurately records my words and actions.
[2020-10-01 14:59] LABS: ABSOLUTE EOSINOPHILS # (AUTO) 0.2 10^3/uL (0.0-0.6); ABSOLUTE LYMPHOCYTES (AUTO) 2.6 10^3/uL (0.5-4.7); ABSOLUTE MONOCYTES (AUTO) 0.5 10^3/uL (0.1-1.4); ABSOLUTE NEUT (AUTO) 3.5 10^3/uL (1.7-8.2); BASOPHILS % (AUTO) 0.7 % (0-2); EOSINOPHILS % (AUTO) 2.7 % (0-6); LYMPHOCYTES % (AUTO) 38.6 % (13-45); MEAN CORPUSCULAR HEMOGLOBIN 28.9 pg (27.0-33.4); MEAN CORPUSCULAR HGB CONC 34.2 g/dL (32.0-36.0); MEAN CORPUSCULAR VOLUME 85 fl (80-97); MONOCYTES % (AUTO) 7.4 % (3-13); PLATELET COUNT 257 10^3/uL (150-450); RED BLOOD COUNT 4.51 10^6/uL (3.72-5.28); RED CELL DISTRIBUTION WIDTH 15.3 % (11.5-14.0); SEGMENTED NEUTROPHILS % (AUTO) 50.6 % (42-78); TOTAL CELLS COUNTED % (AUTO) 100 %; WHITE BLOOD COUNT 6.8 10^3/uL (4.0-10.5)
[2020-10-01 15:17] LABS: A TYPE INFLUENZA AG NEGATIVE (NEGATIVE); B INFLUENZA AG NEGATIVE (NEGATIVE)
[2020-10-01 15:24] LABS: ALBUMIN 4.4 g/dL (3.5-5.0); ALKALINE PHOSPHATASE 110 U/L (38-126); ANION GAP 9 (5-19); ASPARTATE AMINO TRANSFERASE 26 U/L (14-36); BILIRUBIN,DIRECT 0.1 mg/dL (0.0-0.4); BILIRUBIN,TOTAL 0.4 mg/dL (0.2-1.3); BLOOD UREA NITROGEN 10 mg/dL (7-20); CALCIUM 9.5 mg/dL (8.4-10.2); CARBON DIOXIDE 29 mmol/L (22-30); CHLORIDE 101 mmol/L (98-107); GLUCOSE 82 mg/dL (75-110); POTASSIUM 3.7 mmol/L (3.6-5.0); TOTAL PROTEIN 7.6 g/dL (6.3-8.2)
[2020-10-01] MEDS ORDERED: BENZONATATE 100 MG CAPSULE PO ONE (15:48)
[2020-10-01 16:25] VITALS: BP 117/89
== END 2020-10-01 16:26 | disposition home or self-care (01) ==
LOC: ER 10:43
DX: J06.9 Acute upper respiratory infection, unspecified (principal); J04.0 Acute laryngitis; R68.89 Other general symptoms and signs; R06.02 Shortness of breath; I10 Essential (primary) hypertension; Z20.828 Contact with and (suspected) exposure to other viral communicable diseases
CPT/HCPCS: 99284; 36415; 85025; 80053; 87804; 71045; U0003; A9270 ×2; C9803; 87635; J7512